=== PATIENT | female | born 1980 | race Caucasian/White ===

== ENCOUNTER 2022-02-25 07:27 | Outpatient (CLI) | payer OTHER, SELFPAY ==
--- NOTE | ~2022-02-25 | US_ITS ---
EXAMINATION: US abdomen limited DATE: 02/25/2022 07:53 INDICATION: Abdominal pain. Nausea. TECHNIQUE: Multiple grayscale and Doppler ultrasound images of the abdomen were obtained. COMPARISON: None FINDINGS: The visualized portions of the head, body, and tail of the pancreas are normal. There is di ffuse hepatic steatosis. No liver surface nodularity. There is normal flow in main portal vein. The g allbladder is normal in size. No gallstones or gallbladder wall wall thickening. There was no sonogra phic Shafer sign. The common duct is normal and measures 4 mm. IMPRESSION: 1. Diffuse hepatic steatosis. Reviewed, dictated and finalized at location B.
== END 2022-02-25 07:28 | disposition home or self-care (01) ==
LOC: CHSIMG 07:30
PROVIDERS: PCP Family Medicine; Visit Provider Family Medicine
DX: R10.9 Unspecified abdominal pain (principal)
CPT/HCPCS: 76705

== ENCOUNTER 2022-07-26 14:56 | Outpatient (CLI) | payer BC, SELFPAY ==
--- NOTE | ~2022-07-26 | US_ITS ---
EXAMINATION: US pelvic complete w TV DATE: 07/26/2022 15:34 INDICATION: Recurrent hypertrophy. Prolapsed uterus. Comparison:No prior studies for comparison. TECHNIQUE: Multiple transabdominal and endovaginal sonographic images of the pelvis performed. FINDINGS: The uterus measures 10.3 x 7.4 x 5 cm. The endometrial complex measures 6 mm. There are nab othian cysts. The right ovary measures 3.5 x 3.9 x 2.2 cm and the left ovary measures 4.3 x 3.7 x 4.6 cm. There is a 3.1 cm left ovarian cyst. There are small follicles in each ovary. Normal doppler signal in both ov diogenes. There is no free fluid in the pelvis. There are no abnormal masses seen on either side. IMPRESSION: 1. Simple cyst of the left ovary measuring 3.1 cm. 2: Mildly enlarged uterus. Reviewed, dictated and finalized at location A.
== END 2022-07-26 14:57 | disposition home or self-care (01) ==
LOC: CHSIMG 15:00
PROVIDERS: PCP Family Medicine
DX: N85.2 Hypertrophy of uterus (principal); N92.0 Excessive and frequent menstruation with regular cycle
CPT/HCPCS: 76830; 76856

== ENCOUNTER 2022-08-23 13:21 | Outpatient (NON) | payer BC, SELFPAY ==
[2022-08-29 07:12] LABS: Reference Lab Test Name YEAST CULTURE
== END 2022-08-23 13:22 | disposition home or self-care (01) ==
LOC: CHSLAB 13:22
PROVIDERS: Visit Provider Nurse Practitioner Family
DX: N89.8 Other specified noninflammatory disorders of vagina (principal)
CPT/HCPCS: 36415; 87070; 87086; 87102; 87206; 87491; 87591; 87661

== ENCOUNTER 2023-10-13 15:34 | Outpatient (NON) | payer BC, SELFPAY ==
[2023-10-13 16:32] LABS: Appearance Urine Clear (Clear); Bilirubin Urine Negative (Negative); Blood Urine Negative (Negative); Color Urine Light Yellow (Yellow); Glucose Urine UA Trace (Negative); Ketones Urine Negative (Negative); Leukocyte Esterase Ur 1+ LEU/UL (Negative); Nitrate Urine Negative (Negative); Protein Urine Negative (Negative); Urobilinogen Urine 0.2 mg/dL (0.2-1.0)
[2023-10-13 16:38] LABS: Add Urine Microscopic? YES; Bacteria Urine Trace /hpf; RBC Urine 0-2 /hpf (0-2); Squamous Epithelial Cell Urine Few /hpf (Few); WBC Urine 0-5 /hpf (0-3)
[2023-10-16 20:03] LABS: Trichomonas Vag PCR NOT DETECTED (NOT DETECTE)
[2023-10-16 20:25] LABS: Chlamydia trachomatis NOT DETECTED (NOT DETECTE); Neisseria gonorrhoeae PCR NOT DETECTED (NOT DETECTE)
== END 2023-10-13 15:35 | disposition home or self-care (01) ==
LOC: CHSLAB 15:35
PROVIDERS: Visit Provider Nurse Practitioner Family
DX: Z11.3 Encounter for screening for infections with a predominantly sexual mode of transmission (principal); N89.8 Other specified noninflammatory disorders of vagina; R82.90 Unspecified abnormal findings in urine
CPT/HCPCS: 81001; 81513; 87070; 87086; 87491; 87591; 87661

== ENCOUNTER 2024-09-23 12:35 | Outpatient (NON) | payer BC, SELFPAY | END 2024-09-23 12:36 | disposition home or self-care (01) | LOC: CHSLAB 12:38 | PROVIDERS: PCP Nurse Practitioner Family; Visit Provider Nurse Practitioner Family | DX: Z11.4 Encounter for screening for human immunodeficiency virus [HIV] (principal); Z12.4 Encounter for screening for malignant neoplasm of cervix; Z11.51 Encounter for screening for human papillomavirus (HPV); Z11.8 Encounter for screening for other infectious and parasitic diseases | CPT/HCPCS: 87491; 87591; 87624; 88175; G0145 ==

== ENCOUNTER 2024-11-25 07:23 | Outpatient (CLI) | payer BC, SELFPAY ==
--- NOTE | ~2024-11-25 | MM_ITS ---
EXAMINATION: MM screening valencia BI w charmaine HISTORY: Screening TECHNIQUE: Craniocaudal and mediolateral oblique 3-D tomosynthesis images were obtained and synthetic 2-D images were generated. CAD analysis was submitted and interpreted. COMPARISON: No prior mammogram is available for comparison at this institution. BREAST PARENCHYMAL COMPOSITION: Not dense: There are scattered areas of fibroglandular density. FINDINGS: There is asymmetry with possible architectural distortion in the subareolar location of the right breast. There are no suspicious masses, calcifications or architectural distortion in the left breast. IMPRESSION: 1. Right breast asymmetry with possible architectural distortion and the subareolar location. 2. Recommend comparison to previous outside mammograms to assess stability. BI-RADS Category 0: Incomplete: Needs additional imaging evaluation. Reviewed, dictated and finalized at location A. NSIONAL INTEGRATION ENGINEER IMPRESSION: 1. Right breast asymmetry with possible architectural distortion and the subare olar location. 2. Recommend comparison to previous outside mammograms to assess stability. BI-RADS Category 0: Incomplete: Needs additional imaging evaluation.
--- OUTSIDE RECORDS SUMMARY | 2024-11-28 11:34 | XMS_ITS | Encounter Summary ---
Author Organization [facility] Address [facility]. 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
--- OUTSIDE RECORDS SUMMARY | 2024-11-28 11:34 | XMS_ITS | Clinical Summary ---
Author Organization [facility] Address [facility] [place] [address] [place] [address] Care Team Providers Care News Cameraman Name Role Phone Inés Fermin Primary Care Provider +1 [phone] Encounters Date Type Department Care Team Description 09/23/2024 2:37 PM ON SITE NURSE - 09/23/2024 11:59 PM ON SITE NURSE Hospital Encounter [facility] [address] [place] [address] [address] Inés Fermin FNP Discharge Disposition: Home or Self Care (Routine Discharge) from Last 3 Months Social History Tobacco Use Types Packs/Day Years Used Date Smoking Tobacco: Never Assessed Comments Unknown Sex and Gender Information Value Date Recorded Sex Assigned at Not on file Legal Sex Female 5:46 PM ON SITE NURSE Gender Identity Not on file Sexual Orientation Not on file Plan of Treatment Health Maintenance Due Date Last Done Comments Cervical Cancer Screening Pa p Smear (Age 30 to 64) Every 3 Years 1978 Colorectal Cancer Screening Colonoscopy (10 Years) 1978 Annual Physical 1981 Hepatitis C 1996 DTaP, Tdap and Td Vaccines ( 1 - Tdap) 1997 Hepatitis B Vaccines (1 of 3 - 19+ 3-dose series) 1997 Mammogram Screening 2018 COVID-19 Vaccine (2023-2 5 season) 2024 Influenza Adult (#1) 2024 Cervical Cancer Screening Pa p with HPV Testing (Age 30 to 64) Every 5 Years 09/23/2029 09/23/2024 Cervical Cancer Screening with HPV 09/23/2029 Meningococcal Vaccine Aged Out No simeon jerald eligible based on patient's age to complete this topic Pneumococcal Vaccine: Pediat rics (0 to 5 Years) and At-Risk Patients (6 to 64 Years) Aged Out No longer eligi ble based on patient's age to complete this topic RSV Immunizations Under 20 Months Aged Out No longer eligible based on patient's age to complete this topic Procedures Procedure Name Priority Date/Time Associated Diagnosis Comments HUMAN PAPILLOMAVIRUS, HIGH-RISK TYPES Routine 09/23/2024 8:00 AM ON SITE NURSE from Last 3 Months Results * HUMAN PAPILLOMAVIRUS, HIGH-RISK TYPES (09/23/2024 8:00 AM ON SITE NURSE) SPEC DESCRIPTION CERVIX 09/30/20 2:39 PM ON SITE NURSE [facility] HPV DNA HIGH RISK NEGATIVE NEGATIVE 10/01/2024 12:27 AM ON SITE NURSE [facility] Comment:SEE CYTOLOGY REPORT 09/23/2024 8:00 AM ON SITE NURSE Inés CHE PATHOLOGY/CYTOLOGY ORDERA BLES Final Result [facility] [address] [place] [address], from Last 3 Months Care Teams News Cameraman Relationship Specialty Start Date End Date Inés Fermin FNP [address] [place] [address] PCP - General NURSE PRACTITIONER 09/23/24
== END 2024-11-25 07:24 | disposition home or self-care (01) ==
PROVIDERS: PCP Nurse Practitioner Family; Visit Provider Nurse Practitioner Family
DX: Z12.31 Encounter for screening mammogram for malignant neoplasm of breast (principal); R92.8 Other abnormal and inconclusive findings on diagnostic imaging of breast
CPT/HCPCS: 77063; 77067

== ENCOUNTER 2024-12-16 09:46 | Outpatient (CLI) | payer BC, SELFPAY ==
--- NOTE | ~2024-12-16 | MMUS_ITS ---
EXAMINATION: MM diagnostic valencia RT w charmaine, US breast RT limited HISTORY: Follow-up right breast asymmetry TECHNIQUE: Additional 3-D tomosynthesis images of the right breast were performed and synthetic 2-D i mages were generated. CAD analysis was submitted and interpreted. High resolution Limited right breas t ultrasound was performed. COMPARISON: 11/25/2024 BREAST PARENCHYMAL COMPOSITION: Not dense: There are scattered areas of fibroglandular density. FINDINGS: MAMMOGRAPHIC FINDINGS: There are persistent subareolar asymmetries of the right breast without discrete mass. There are no s uspicious calcifications or architectural distortion. ULTRASOUND: Limited right breast ultrasound: At 12:00 in the periareolar location of the right breast there is an oval hypoechoic mass measuring 6 mm with echogenic hilum, likely benign intramammary lymph node. In the periareolar location of the right breast at 12:00 there is also an oval hypoechoic 3 mm mass, wit h low level internal echoes, likely benign. IMPRESSION: 1. Probable benign right breast masses. 2. Recommend 6 month follow-up diagnostic right mammogram and Limited right breast ultrasound BI-RADS category 3, probably benign findings. Reviewed, dictated and finalized at location B. NEERING DOCUMENT CONTROL CLERK IMPRESSION: 1. Probable benign right breast masses. 2. Recommend 6 month follow-up diagnostic right mammogram and Limited right rios ast ultrasound BI-RADS category 3, probably benign findings.
--- OUTSIDE RECORDS SUMMARY | 2024-12-16 10:26 | XMS_ITS | Encounter Summary ---
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
--- OUTSIDE RECORDS SUMMARY | 2024-12-16 10:26 | XMS_ITS | Clinical Summary ---
Author Organization [facility] Address [address] [place] [address] Care Team Providers Care Pourer Off Name Role Phone Inés Fermin Primary Care Provider +1 [phone] Encounters Date Type Department Care Team Description 09/23/2024 2:37 PM OPTOMETRIST/PRACTICE OWNER - 09/23/2024 11:59 PM OPTOMETRIST/PRACTICE OWNER Hospital Encounter [facility] [address] [place] [address] Inés Fermin FNP Discharge Disposition: Home or Self Care (Routine Discharge) from Last 3 Months Social History Tobacco Use Types Packs/Day Years Used Date Smoking Tobacco: Never Assessed Comments Unknown Sex and Gender Information Value Date Recorded Sex Assigned at Not on file Legal Sex Female 5:46 PM OPTOMETRIST/PRACTICE OWNER Gender Identity Not on file Sexual Orientation [...] Cervical Cancer Screening with HPV 09/23/2029 Meningococcal B Vaccine Aged Out No l onger eligible based on patient's age to complete this topic Meningococcal Vaccine Aged Out No simeon jerald [...] PAPILLOMAVIRUS, HIGH-RISK TYPES Routine 09/23/2024 8:00 AM OPTOMETRIST/PRACTICE OWNER from Last 3 Months Results * HUMAN PAPILLOMAVIRUS, HIGH-RISK TYPES (09/23/2024 8:00 AM OPTOMETRIST/PRACTICE OWNER) SPEC DESCRIPTION CERVIX 09/30/20 2:39 PM OPTOMETRIST/PRACTICE OWNER [facility] HPV DNA HIGH RISK NEGATIVE NEGATIVE 10/01/2024 12:27 AM OPTOMETRIST/PRACTICE OWNER [facility] Comment:SEE CYTOLOGY REPORT 09/23/2024 8:00 AM OPTOMETRIST/PRACTICE OWNER Inés CHE PATHOLOGY/CYTOLOGY ORDERA BLES Final Result [facility] [address] [place] [address], from Last 3 Months Care Teams Pourer Off Relationship Specialty Start Date End Date Inés Fermin FNP [address] [place] [address] PCP - General NURSE PRACTITIONER 09/23/24
== END 2024-12-16 09:47 | disposition home or self-care (01) ==
LOC: CHSIMG 09:47
PROVIDERS: PCP Nurse Practitioner Family; Visit Provider Nurse Practitioner Family
DX: R92.8 Other abnormal and inconclusive findings on diagnostic imaging of breast (principal)
CPT/HCPCS: 76642; 77061; 77065; G0279

== ENCOUNTER 2025-01-31 09:53 | Outpatient (CLI) | payer BC, SELFPAY ==
--- NOTE | ~2025-01-31 | MR_ITS ---
MR breast BI wo/w con 02/03/2025 8:13 CDT INDICATION: Probable benign right breast masses seen on prior examination. TECHNIQUE: MRI of the breasts perform using standard protocol pre-and post IV contrast with the follo wing sequences: Axial T2 STIR, axial T1, axial vibrant T1 with fat suppression precontrast and multip hasic postcontrast. 18 cc ProHance administered intravenously. COMPARISON: Mammogram dated 11/25/2024 12/16/2024. Right breast ultrasound dated 12/16/2024. FINDINGS: Right breast: The breasts are composed of heterogeneous content. There is moderate background parench ymal enhancement. At 10 2:00, middle third approximately 5.5 cm posterior to the nipple there is an a caryl of nonmass-like enhancement measuring 1.9 x 0.7 x 0.5 cm with rapid plateau characteristics, poss ibly a serpiginous vessel. No suspicious enhancing masses are identified. No evidence of signal abnor malities in the axillary or internal mammary node distributions. LEFT BREAST: No signal abnormalities on precontrast sequences. There are a few small cysts. There is moderate background parenchymal enhancement. There is a focus of enhancement in the central anteri or aspect of the left breast with rapid plateau characteristics, most likely benign background enhanc ement. There is a right periareolar cyst likely corresponding to a small mass seen on prior examinati on. No evidence of signal abnormalities in the axillary or internal mammary node distributions.] IMPRESSION: 1: Probable benign bilateral breast findings. BI-RADS CATEGORY 3-PROBABLY BENIGN FINDING RECOMMENDATION: Six-month follow-up diagnostic bilateral mammogram and ultrasound recommended. Reviewed, dictated and finalized at location A. IMPRESSION: 1: Probable benign bilateral breast findings. BI-RADS CATEGORY 3-PROBABLY BENIGN FINDING RECOMMENDATION: Six-month follow-up diagnostic bilateral mammogram and ultrasou nd recommended.
--- OUTSIDE RECORDS SUMMARY | 2025-01-31 10:40 | XMS_ITS | Encounter Summary ---
Author Organization [facility] Address [facility] [place] [address] Care Team Providers Care Upholstery Sewer Name Role Phone Inés Fermin Primary Care Provider [phone] [phone] Encounter Details Date Type Department Care Team (Late st Contact Info) Description 04/13/2019 Abstract SFL CONVERSION [address] [place] [address] , Generic Conversion, Social History Tobacco Use Types Packs/Day Years Used Date Smoking Tobacco: Never Assessed Comments Unknown Sex and Gender Information Value Date Recorded Sex Assigned at Not on file 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
--- OUTSIDE RECORDS SUMMARY | 2025-01-31 10:40 | XMS_ITS | Clinical Summary ---
Author Organization [facility] Address [facility] [place] [address] Care Team Providers Care Aircraft Quality Control Inspector Name Role Phone Inés Fermin NURSES SUPERVISOR Primary Care Provider [phone] [phone] Social History Tobacco Use Types Packs/Day Years Used Date Smoking Tobacco: Never Assessed Comments Unknown Sex and Gender Information Value Date Recorded Sex Assigned at Not on file Legal Sex Female 5:46 PM TESTING SPECIALIST Gender Identity Not on file Sexual [...] PAPILLOMAVIRUS, HIGH-RISK TYPES Routine 09/23/2024 8:00 AM TESTING SPECIALIST from Last 3 Months or Most Recently Relevant to Health Maintenance Results * HUMAN PAPILLOMAVIRUS, HIGH-RISK TYPES (09/23/2024 8:00 AM TESTING SPECIALIST) SPEC DESCRIPTION CERVIX 09/30/20 2:39 PM TESTING SPECIALIST [facility] HPV DNA HIGH RISK NEGATIVE NEGATIVE 10/01/2024 12:27 AM TESTING SPECIALIST [facility] Comment:SEE CYTOLOGY REPORT 09/23/2024 8:00 AM TESTING SPECIALIST Inés CHE PATHOLOGY/CYTOLOGY ORDERA BLES Final Result [facility] [address] [place] [address], from Last 3 Months or Most Recently Relevant to Health Maintenance Care Teams Aircraft Quality Control Inspector Relationship Specialty Start Date End Date Inés Fermin FNP [address] [place] [address] PCP - General NURSE PRACTITIONER 09/23/24
== END 2025-01-31 09:54 | disposition home or self-care (01) ==
LOC: ANHIMG 09:54
PROVIDERS: PCP Nurse Practitioner Family; Visit Provider Surgery
DX: N63.15 Unspecified lump in the right breast, overlapping quadrants (principal); N64.52 Nipple discharge; R92.8 Other abnormal and inconclusive findings on diagnostic imaging of breast
CPT/HCPCS: 77049; A9579; C8908

== ENCOUNTER 2025-05-23 07:22 | Outpatient (CLI) | payer BC, SELFPAY ==
--- NOTE | ~2025-05-23 | US_ITS ---
US soft tissue groin LT 05/23/2025 07:42 Indication: Palpable lump left upper inner thigh and perineum. No injury. Procedure: High-resolution Limited ultrasound of the areas of palpable concern Comparison: No prior studies for comparison. Findings: There is a well-defined oval hypoechoic mass located at subdural normal soft tissues with p arallel orientation to skin surface and circumscribed margins. This mass measures 3.9 x 2.4 x 1.4 cm without internal vascularity or significant posterior features. There are horizontal linear internal striations. No sinus tract or connection to deeper structures. Impression: 1: Benign-appearing subcutaneous soft tissue lesion most consistent with a lipoma with fibrous septa or epidermoid inclusion cyst. Differential diagnosis includes fibroma and less likely organizing fat necrosis. If the lesion is enlarging or symptomatic, further evaluation with MRI or surgical consulta tion recommended. Consider short-term follow-up ultrasound in 6 months. Reviewed, dictated and finalized at location A. Impression: 1: Benign-appearing subcutaneous soft tissue lesion most consistent with a lipo ma with fibrous septa or epidermoid inclusion cyst. Differential diagnosis incl udes fibroma and less likely organizing fat necrosis. If the lesion is enlargin g or symptomatic, further evaluation with MRI or surgical consultation recommen ded. Consider short-term follow-up ultrasound in 6 months.
--- OUTSIDE RECORDS SUMMARY | 2025-05-23 07:26 | XMS_ITS | Encounter Summary ---
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
--- OUTSIDE RECORDS SUMMARY | 2025-05-23 07:26 | XMS_ITS | Clinical Summary ---
Author Organization [facility] Address [facility] [place] [address] Care Team Providers Care Master Machinist Name Role Phone Inés Fermin AUTOMOBILE LIGHTS ASSEMBLER Primary Care Provider +1 [phone] Social History Tobacco Use Types Packs/Day Years Used Date Smoking Tobacco: Never Assessed Comments Unknown Sex and Gender Information Value Date Recorded Sex Assigned at Not on file Legal Sex Female 5:46 PM AERONAUTICAL RESEARCH ENGINEER Gender Identity Not on file Sexual Orientation [...] 2018 COVID-19 Vaccine (2023-2 5 season) 2024 Cervical Cancer Screening Pa p with [...] 5 Years) and At-Risk Patients (6 to 49 Years) Aged Out No longer eligi ble based on patient's age to complete this topic RSV Immunizations Under 20 Months Aged Out No longer eligible based on patient's age to complete this topic Procedures Procedure Name Priority Date/Time Associated Diagnosis Comments HUMAN PAPILLOMAVIRUS, HIGH-RISK TYPES Routine 09/23/2024 8:00 AM AERONAUTICAL RESEARCH ENGINEER from Last 3 Months or Most Recently Relevant to Health Maintenance Results * HUMAN PAPILLOMAVIRUS, HIGH-RISK TYPES (09/23/2024 8:00 AM AERONAUTICAL RESEARCH ENGINEER) SPEC DESCRIPTION CERVIX 09/30/20 2:39 PM AERONAUTICAL RESEARCH ENGINEER [facility] HPV DNA HIGH RISK NEGATIVE NEGATIVE 10/01/2024 12:27 AM AERONAUTICAL RESEARCH ENGINEER [facility] Comment:SEE CYTOLOGY REPORT 09/23/2024 8:00 AM AERONAUTICAL RESEARCH ENGINEER Inés CHE PATHOLOGY/CYTOLOGY ORDERA BLES Final Result [facility] [address] [place] [address], from Last 3 Months or Most Recently Relevant to Health Maintenance Care Teams Master Machinist Relationship Specialty Start Date End Date Inés Fermin FNP [address] [place] [address] PCP - General NURSE PRACTITIONER 09/23/24
== END 2025-05-23 07:23 | disposition home or self-care (01) ==
LOC: CHSIMG 07:24
PROVIDERS: PCP Nurse Practitioner Family; Visit Provider Nurse Practitioner Family
DX: R22.42 Localized swelling, mass and lump, left lower limb (principal)
CPT/HCPCS: 76882

== ENCOUNTER 2025-08-22 08:58 | Outpatient (CLI) | payer BC, SELFPAY ==
--- NOTE | ~2025-08-22 | MMUS_ITS ---
EXAMINATION: MM diagnostic valencia BI w charmaine, US breast BI limited HISTORY: Right breast lump. TECHNIQUE: Additional images of both breasts ]] were performed using full field digital mammography. 3-D tomosynthesis were also obtained and synthetic 2-D images were generated. CAD analysis was submitted and interpreted. High- resolution bilateral breast ultrasound was performed.] ] COMPARISON: Mammograms 08/30 and 11/25/2024 BREAST PARENCHYMAL COMPOSITION: The breasts are heterogeneously dense, which may obscure small masses. FINDINGS: MAMMOGRAPHIC FINDINGS: Focal asymmetry in the central right breast, anterior to middle depth. No convincing sonographic correlate. The finding is probably benign. Focal asymmetry in the upper-outer quadrant of the left breast, anterior to middle depth. No convincing sonographic correlate. The finding is probably benign. ULTRASOUND: There is a 7 x 7 x 3 mm hypoechoic cyst versus solid mass in the right breast at the 12:00 position in the retroareolar region. The finding is wider than tall. Margins are partially circumscribed. No internal color Doppler flow. No posterior acoustic shadowing. There is a 4 x 3 x 3 mm hypoechoic cyst versus solid mass in the right breast at the 12:00 position in the subareolar region middle depth. Margins are partially circumscribed. No internal color flow. No posterior acoustic shadowing. There is a 6 x 4 x 5 mm hypoechoic cyst versus solid mass in the left breast at the 12:00 position 3 cm from the nipple. Margins are partially circumscribed. No internal color flow. No posterior acoustic shadowing. IMPRESSION/RECOMMENDATION: 1. Probably benign findings in both breasts. A bilateral diagnostic mammogram and a bilateral diagnostic breast ultrasound in 6 months is recommended. BI-RADS 3-Probably benign-Short interval follow-up suggested. Reviewed, dictated and finalized at location Q. IMPRESSION/RECOMMENDATION: 1. Probably benign findings in both breasts. A bilateral diagnostic mammogram a nd a bilateral diagnostic breast ultrasound in 6 months is recommended. BI-RADS 3-Probably benign-Short interval follow-up suggested. IMPRESSION/RECOMMENDATION: 1. Probably benign findings in both breasts. A bilateral diagnostic mammogram a nd a bilateral diagnostic breast ultrasound in 6 months is recommended. BI-RADS 3-Probably benign-Short interval follow-up suggested.
== END 2025-08-22 08:59 | disposition home or self-care (01) ==
LOC: CHSIMG 08:58
PROVIDERS: PCP Family Medicine; Visit Provider Surgery
DX: N63.15 Unspecified lump in the right breast, overlapping quadrants (principal); N64.52 Nipple discharge; R92.8 Other abnormal and inconclusive findings on diagnostic imaging of breast
CPT/HCPCS: 76642; 77062; 77066; G0279